=== PATIENT | female | born 1940 | race Hispanic/Latino ===

== ENCOUNTER 2017-05-12 10:11 | Inpatient (IN) | payer MEDICARE, MEDICAID ==
[2017-05-12] VITALS (7 sets, daily range): BP systolic 141–174; BP diastolic 48–91; PULSE 62–75; RESP 14–18; O2SAT 99–100
[~2017-05-12] VITALS: Ht 154.9 cm; Wt 60.8 kg
[~2017-05-12 10:11] MED LIST: AZEL6DRO6 BOTH_EYES; CYA1000I IM; LISI-567 PO; OMEP40CA3 PO
--- NOTE | 2017-05-12 10:27 | ED.REPORT ---
HPI-General Illness Date of Service May 12, 2017 ED Provider: John Heath MD Patient is a 76 year old female with a history of hypertension and gastritis who presents to the ED complaining of dizziness onset more than 8 days ago. Associated symptoms include nausea, decreased appetite and weakness. She also complains of increasing leg cramping. The patient reports that the dizziness is worse when she changes positions or tries to stand and walk. Patient also states that her blood pressure medication (Lisinopril and Hydrochlorothiazide) was recently increased and her leg cramping has been worse since then. Patient was seen at , who referred the patient to the ED. The patient has painful varicose veins, which she has seen a nail making machine setter for. She has prescribed Hydrocodone but reports she has not used any for pain. Nursing Notes Stated Complaint: DIZZINESS,HIGH POTASSIUM,LACK OF APPETITE Chief Complaint: General Complaint Nursing Notes Reviewed: Yes Allergies: Coded Allergies: No Known Allergies (Verified Allergy, Unknown, 10/27/15) Scheduled Ca/D3/Mag/Zinc/Kevon/Bonilla/Mgbor (Caltrate 600+D3+Min Chew Tab) 1 Each Tab.chew 1 EACH PO DAILY Esomeprazole Magnesium (Nexium) 40 Mg Capsule.dr 40 MG PO DAILY Hydrochlorothiazide (Hydrochlorothiazide) 25 Mg Tablet 25 MG PO DAILY Lisinopril (Lisinopril) 20 Mg Tablet 2 TAB PO DAILY Scheduled PRN Hydrocodone-Acetaminophen 5-325 mg (Hydrocodone-Acetaminophen 5-325 mg) 1 Each Tablet 1 TABLET PO Q4H PRN PRN For Pain Miscellaneous Medications Azelastine HCl (Azelastine HCl) 6 Ml Drops 6 ML OP Cholecalciferol (Vitamin D3) (Vitamin D3) 5,000 Unit Tab.rapdis 5,000 UNIT PO General Time Seen by MD: 10:26 Chief Complaint Dizziness Hx Obtained From: Patient Arrived By: Walk-in Sudden in Onset?: Yes Exacerbated by: Standing up Recent Healthcare: Recent doctor visit Similar Sx Previous: No Past Medical History Past Medical History gastritis-takes omeprazole arthritis Reports: Hypertension Past Surgical History bowel resection Reports: Cholecystectomy Smoking History Never Smoker Social History Other Social History: Good social support Ambulatory Status Independent Review of Systems +decreased appetite Full Review of Systems Constitutional: Reports: Weakness - generalized, Denies: Chills, Fever Respiratory: Denies: Non-productive cough, Shortness of breath GI: Reports: Nausea, Denies: Vomiting Musculoskeletal: Reports: Extremity pain Skin: Denies Itching, Denies Rash Neurologic: Reports: Dizziness Complete sys rev & neg: except as marked. Physical Exam Vital Signs Vital Signs Date Time Temp Pulse Resp B/P Pulse Ox O2 Delivery O2 Flow Rate FiO2 05/12/17 13:27 36.9 62 14 141/48 100 Room Air 05/12/17 13:09 62 14 141/48 100 05/12/17 10:15 36.9 71 18 174/67 100 Room Air Initial VS: Reviewed General/Constitutional: Awake, Alert Head / Eyes: Atraumatic, Normocephalic, PERRL, EOMI Respiratory / Chest: Atraumatic, Breath sounds NL, Breath sounds = bilat, No respiratory distress Cardiovascular: Heart rate NL, Regular rhythm, Heart sounds NL Abdomen: Atraumatic, Soft, No guarding, No rebound Tenderness/Guarding/Rebound: Positive: Tender diffuse Skin: Atraumatic, Color NL, No rash, Warm, Dry Neurologic: Oriented X3, Speech NL Interpretation & Diagnostics Lab Results Interpretation Result Diagram: 05/12/17 1025 05/12/17 1115 Test 05/12/17 10:25 05/12/17 11:15 05/12/17 12:03 White Blood Count 6.5th/mm3 (3.8-10.1) Red Blood Count 3.62mil/mm3 (3.90-5.20) Hemoglobin 11.9g/dL (12.0-15.6) Hematocrit 32.5% (35.0-46.0) Mean Corpuscular Volume 89.8fL (81-100) Mean Corpuscular Hemoglobin 32.9pg (27.0-35.0) Mean Corpuscular Hemoglobin Concent 36.6% (32.0-37.0) Red Cell Distribution Width 11.5% (12.3-15.4) Platelet Count 302bil/L (150-400) Neutrophils (%) (Auto) 56.8% (40-74) Lymphocytes (%) (Auto) 31.7% (14-46) Monocytes (%) (Auto) 10.6% (4-12) Eosinophils (%) (Auto) 0.5% (0-5) Basophils (%) (Auto) 0.2% (0-3) Hold [place] Top Tube Received (Received) Sodium Level 120mEq/L (134-144) Potassium Level 4.7mEq/L (3.5-5.2) Chloride Level 88mEq/L (97-108) Carbon Dioxide Level 18mmol/L (18-29) Blood Urea Nitrogen 15mg/dL (8-27) Creatinine 0.93mg/dL (0.57-1.00) Estimat Glomerular Filtration Rate 84mL/min (>59) Glucose Level 123mg/dL (60-99) Calcium Level 9.3mg/dL (8.5-10.1) Total Bilirubin 0.6mg/dL (0.0-1.2) Aspartate Amino Transf (AST/SGOT) 22U/L (0-50) Alanine Aminotransferase (ALT/SGPT) 11U/L (0-32) Alkaline Phosphatase 73U/L (25-165) Total Protein 7.4g/dL (6.4-8.4) Albumin 4.2g/dL (3.4-5.0) Urine Color Yellow (YELLOW) Urine Appearance Clear (CLEAR,HAZY) Urine pH 7.5 (5.0-8.0) Urine Specific [place] 1.013 (1.003-1.035) Urine Protein Negativemg/dL (NEG,TRACE) Urine Glucose (UA) Negativemg/dL (NEGATIVE) Urine Ketones Negativemg/dL (NEGATIVE) Urine Occult Blood Negative (NEGATIVE) Urine Nitrite Negative (NEGATIVE) Urine Bilirubin Negative (NEGATIVE) Urine Urobilinogen Normalmg/dL (NORMAL) Urine Leukocyte Esterase Negative (NEGATIVE) Urine RBC 0-2/hpf (0-2) Urine WBC 0-5/hpf (0-5) Urine Epithelial Cells Few/hpf (NONE-MOD) Urine Crystals None seen (NONE SEEN) Urine Bacteria None/hpf (NONE-FEW) Urine Hyaline Casts None/lpf (NONE) Urine Granular Casts None seen (NONE SEEN) Urine Waxy Casts None seen (NONE SEEN) Urine Red Blood Cell Casts None seen (NONE SEEN) Urine White Blood Cell Casts None seen (NONE SEEN) Urine Mucus None seen (None Seen) Urine Trichomonas None seen (NONE SEEN) Urine Yeast None (NONE SEEN) Urinalysis Comment None Urine Culture Reflexed Not indicated ECG Interpretation Time: 10:52 Interpreted by: ED physician Normal ECG Interpretation: Normal rate (69), Normal sinus rhythm Re-Eval/Medical Decision Time of Eval: 12:29 Re-Evaluation/Progress Note: Discussed results and plan for admit. Patient understands and agrees to plan. All questions were addressed. Consultation : Referral / Consult Name: Raffaele Hope MD Consulted With: Hospitalist Call Returned at: 14:04 Child Development Instructor: Agrees with eval, Agrees with plan, Accepts admit Counseled Regarding: Diagnosis, Lab results, Need for admission Discharge & Departure Primary Impression: Hyponatremia Disposition: ADMITTED TO HOSPITAL Discharge Condition All VS Reviewed: Yes Condition: Stable Referrals: Evelyn Elmore MD (PCP) [place] Attestation Portions of this note were transcribed by Morenita Antunez. I, Dr. Heath personally performed the history, physical exam and medical decision-making; I reviewed and confirmed the accuracy of the information in the transcribed note. Signed by: Clifton Malik, 05/12/17 copies to: Evelyn Elmore MD, Kirk H MD May 12, 2017 10:27 Faith Antunez May 12, 2017 10:41
[2017-05-12 10:39] LABS: BASOPHILS % (AUTO) 0.2 % (0-3); EOSINOPHILS % (AUTO) 0.5 % (0-5); MONOCYTES % (AUTO) 10.6 % (4-12); Mean Corpuscular Hemoglobin 32.9 pg (27.0-35.0); Mean Corpuscular Volume 89.8 fL (81-100); NEUTROPHILS % (AUTO) 56.8 % (40-74); Platelet Count 302 bil/L (150-400)
[2017-05-12 12:52] LABS: APPEARANCE,URINE CLEAR (CLEAR,HAZY); COLOR,URINE YELLOW (YELLOW); OCCULT BLOOD,URINE NEGATIVE (NEGATIVE); PH,URINE 7.5 (5.0-8.0); UROBILINOGEN,URINE NORMAL (NORMAL)
[2017-05-12] MEDS ORDERED: HYDR-4003 PO (13:11)
[2017-05-12] MEDS ORDERED: CHOL500062 PO (13:11)
[2017-05-12] MEDS ORDERED: ESOM40CA41 PO (13:11)
[2017-05-12] MEDS ORDERED: LISI-567 PO (13:11)
[2017-05-12] MEDS ORDERED: CA/D1TAB7 PO (13:11)
[2017-05-12] MEDS ORDERED: HYDR25TA4 PO (13:11)
[2017-05-12] MEDS ORDERED: Polyethylene Glycol (PEG) 17 Gm Powder PO PRN (14:10)
[2017-05-12] MEDS ORDERED: Alum-Mag Hydrox-Simeth 30 mL Suspension PO PRN (14:10)
[2017-05-12] MEDS ORDERED: Ondansetron 2 mg/mL 2 mL Inj IVPUSH PRN (14:10)
[2017-05-12] MEDS ORDERED: [UNRECOGNIZED DRUG - OTHER] PO (14:23)
[2017-05-12] MEDS ORDERED: 0.9% Sodium Chloride 1,000 ML IV ONE (14:30)
[2017-05-12] MEDS ORDERED: 0.9% Sodium Chloride 500 ML IV ONE (14:30)
--- NOTE | 2017-05-12 14:36 | PCM.HPMED ---
Subjective Date of Service May 12, 2017 Primary Provider: Admitting Physician: Raffaele Hope MD Primary Care Physician: Evelyn Elmore MD Attending Physician: Raffaele Hope MD Admit Status: From the Emergency Department, Full Admit, Admit to Blue Team Chief Complaint: progressively worsening dizziness,nausea /2 weeks History of Present Illness: 76 yo lady with PMH HTN,history of ischemic bowel s/p resection,varicose vein presented with progressively worsening dizziness and nausea of 2 weeks . Patient states she went to her PCP 2 weeks ago to get her varicose checked . She has HTN long standing on lisinopril 30mg daily . She was noted to have high BP during that visit and was advised to increase her lisinopril from 30 to 40mg daily and started on HCTZ 25mg daily . Few days following initiation of HCTZ she started to have nausea,poor appetite,poor oral intake and lightheadededness. Symptoms progressively worsened which prompted ED visit . Denies vomiting.denies leg or abdominal swelling . denies fever ED course: BP 174/67, exam otherwise unremarkable. Hemoglobin 11.9. Sodium 120 , chloride 88, bicarbonate 18, creatinine 0.93 Review of Systems: Comprehensive review of systems performed, pertinent positives and negatives included in history of present illness Allergies Coded Allergies: No Known Allergies (Verified Allergy, Unknown, 10/27/15) Home Medications Hydrochlorothiazide (Hydrochlorothiazide) 25 Mg Tablet 25 MG PO DAILY , started 2 weeks ago Lisinopril (Lisinopril) 20 Mg Tablet 2 TAB PO DAILY , dose increased from 1 and half to 2 tablets 2 weeks ago Ca/D3/Mag/Zinc/Kevon/Bonilla/Mgbor (Caltrate 600+D3+Min Chew Tab) 1 Each Tab.chew 1 EACH PO DAILY Esomeprazole Magnesium (Nexium) 40 Mg Capsule. 40 MG PO DAILY PMH History of ischemic bowel Barretts esophagus Varicose vein Hypertension Surgical History Resection of ischemic small bowel Cholecystectomy Family History Father in his 80s due to gastric ulcer Mom in her 80s due to chronic cough Social History Hx Alcohol Use: No Hx Substance Use: No Hx Tobacco Use: No Smoking Status: Never Smoker Exam Vital Signs Vital Sign - Last Date Time Temp Pulse Resp B/P Pulse Ox O2 Delivery O2 Flow Rate FiO2 05/12/17 13:27 36.9 62 14 141/48 100 Room Air Exam Gen. patient is lying comfortably in hospital bed HEENT: Head is normocephalic atraumatic, dry tongue Lungs clear to auscultation bilaterally Heart regular rate and rhythm without murmurs gallops or rubs Abdomen soft nontender without hepatosplenomegaly Extremities pulses are present dorsalis pedis posterior tibialis and radial. Varicose vein on lower extremity Psych alert and oriented to person place and time Neuro cranial nerves II through XII are grossly intact Lymph: There is no lymphadenopathy appreciated in the cervical supra infraclavicular regions : no barnhart Lab and Diagnostics Result Diagram: 05/12/17 1025 05/12/17 1115 Assessment & Plan 76 yo lady with PMH HTN,history of ischemic bowel s/p resection,varicose vein presented with progressively worsening dizziness and nausea of 2 weeks . # Symptomatic hyponatremia,acute,poa -Due to hydrochlorothiazide -Discontinued hydrochlorothiazide -normal saline 1 L bolus and 100ml/h -goal Na correction 6-8meq/24 -Zofran for nausea #Dizziness due to above # Hypertension, chronic -Discontinued hydrochlorothiazide, hold lisinopril.will use amlodipine if BP high # varicose vein ,undergoing outpt workup # ppx scd Patient admitted under inpatient status with expected length of stay > 2 midnights for severity of present symptoms, complexities of treatment plan and risk for adverse events full code per patient Resuscitation Status: CPR: Attempt Resuscitation copies to: Evelyn Elmore MD, Melaku MD May 12, 2017 14:36
[2017-05-12] MEDS: 0.9% Sodium Chloride 1,000 ML IV SCH (14:57)
--- NOTE | 2017-05-12 15:15 | NUR ---
ADMIT TO [facility] Report received from Jeffy Guzman/ROMULO in ED. Pt arrived to floor around 15:15 strong and steady on feet. Pt is Guatemalan speaking only, grand-daughter in room to assist with needs. Pt oriented to unit, room, and call light. Pt reports feeling dizzy and having nausea. Denies pain and SOB. Admission and Med Rec completed by admit nurse. Tele: SR 63, RA, IVF started per orders. All questions answered, Board updated, Continuing with care.
[2017-05-12 19:40] LABS: Magnesium 1.6 mg/dL (1.6-2.6)
[2017-05-13] VITALS (10 sets, daily range): BP systolic 108–144; BP diastolic 55–70; PULSE 58–73; RESP 16–18; O2SAT 98–99
[2017-05-13] MEDS: 0.9% Sodium Chloride 1,000 ML IV SCH (04:02)
[2017-05-13 06:29] LABS: BASOPHILS % (AUTO) 0.6 % (0-3); EOSINOPHILS % (AUTO) 1.8 % (0-5); MONOCYTES % (AUTO) 14.7 % (4-12); Mean Corpuscular Volume 92.7 fL (81-100); NEUTROPHILS % (AUTO) 50.7 % (40-74); Platelet Count 245 bil/L (150-400)
[2017-05-13 08:30] LABS: Magnesium 1.8 mg/dL (1.6-2.6)
--- NOTE | 2017-05-13 12:45 | PCM.PNMED ---
Subjective Date of Service May 13, 2017 Subjective nausea much improved ,ate breakfast fully today .dizziness improved . Na improved .patient has chonic on and off diarrhea with eating Exam Vital Signs Vital Sign - Last Date Time Temp Pulse Resp B/P Pulse Ox O2 Delivery O2 Flow Rate FiO2 05/13/17 09:45 36.5 66 18 119/64 99 Room Air Intake and Output 05/12/17 05/12/17 05/13/17 Cumulative From/Thru 15:00 23:00 07:00 05/12/17 10:15 - 05/13/17 04:55 Intake Total 1936 ml 832 ml 2768 ml Output Total 1350 ml 1350 ml Balance 586 ml 832 ml 1418 ml Intake Oral 800 ml 800 ml IV Total 1136 ml 832 ml 1968 ml Output Urine Total 1350 ml 1350 ml # Bowel Movements 0 0 Exam Gen. patient is lying comfortably in hospital bed HEENT: Head is normocephalic atraumatic, dry tongue Lungs clear to auscultation bilaterally Heart regular rate and rhythm without murmurs gallops or rubs Abdomen soft nontender without hepatosplenomegaly Extremities pulses are present dorsalis pedis posterior tibialis and radial. Varicose vein on lower extremity Psych alert and oriented to person place and time Neuro cranial nerves II through XII are grossly intact Lymph: There is no lymphadenopathy appreciated in the cervical supra infraclavicular regions : no barnhart IVs and Medications Medications Reviewed: Medications were reviewed in detail Lab and Diagnostics Result Diagram: 05/13/17 0610 05/13/17 0610 Assessment & Plan 76 yo lady with PMH HTN,history of ischemic bowel s/p resection,varicose vein presented with progressively worsening dizziness and nausea of 2 weeks . # Symptomatic hyponatremia,acute,poa -Due to hydrochlorothiazide -Discontinued hydrochlorothiazide -normal saline 1 L bolus and 100ml/h -goal Na correction 6-8meq/24.overcorrected to 130 from 120 in 24h.no neuro complaints or issue.discontinued IVF .low bicarb due to NS noted,follow up in am -Zofran for nausea #Dizziness due to above # Hypertension, chronic -Discontinued hydrochlorothiazide, hold lisinopril.will use amlodipine if BP high.BP low now and no need for any med for now # chronic on and off diarrhea -patient has on and off diarrhea with eating . o sign or symptom of infection -imodium prn.outpt follow up # varicose vein ,undergoing outpt workup # ppx scd Patient admitted under inpatient status with expected length of stay > 2 midnights for severity of present symptoms, complexities of treatment plan and risk for adverse events full code per patient VTE Mechanical Devices: Intermittant Pneumatic CD Resuscitation Status: CPR: Attempt Resuscitation Raffaele Hope MD May 13, 2017 12:45
--- NOTE | 2017-05-13 14:15 | NUR ---
Shift note Pt stated that she felt much better and almost normal. Pt ate 100% of her meals, c/o nausea was very mild but did not need Zofran. Pt had diarrhea X2 after eating. MD notified. Administered Imodium. Pt has diarrhea normally after meals. Pt denied lightheadedness or dizziness. Continue to monitor. Family at bedside to help with translation.
--- NOTE | 2017-05-13 16:36 | NUR ---
Social Work: Initial Assessment Data: See initial assessment. Patient is a 76 year old female who was admitted on 05/12/17 for hyponatremia per H&P. Patient's insurance is Medicare and [facility]. Patient's PCP is Dr. Evelyn Elmore. SW met with patient to discuss discharge planning. Patient is Maltese speaking only however, family was at bedside. Patient's granddaughter Elvie was able to complete assessment. Patient resides in a 2 story home in [place] with her son. Patient considers her main support system to be her family. Patient denies having a DPOA or AD and has declined resources at this time. Patient doesn't drive but relies on her family for transportation assistance. Patient denies having a hx of home health services or SNF. Patient denies having [facility] insurance or [facility] benefits. Upon discharge, transportation will be provided by patient's daughter. SW provided patient with a discharge planning checklist booklet and encouraged to call with any concerns/questions. Phone number provided. SW will continue to follow. Assessment: Patient will discharge home with son. Plan: Patient will discharge home with son when medically ready. Transportation will be provided by family. SW will continue to follow. RADHA Mooney Addendum: 05/13/17 at 1646 by CHEN YANEZ Amended: Links added.
[2017-05-14 00:07] VITALS: BP 121/49; PULSE 66; RESP 18; O2SAT 97
[2017-05-14 06:01] VITALS: BP 124/49; PULSE 71; RESP 17; O2SAT 99
[2017-05-14 06:27] LABS: MONOCYTES % (AUTO) 10.4 % (4-12); Mean Corpuscular Hemoglobin 32.6 pg (27.0-35.0); Mean Corpuscular Volume 93.4 fL (81-100); NEUTROPHILS % (AUTO) 52.5 % (40-74); Platelet Count 248 bil/L (150-400)
--- NOTE | 2017-05-14 08:46 | NUR ---
Assistant Softball Coach In person translation provided for pt. Pt denies having questions/concerns. Denies nausea. States is ready to go home. Has a f/u with PCP on 07/02-looking into seeing someone sooner taylor if SBP >150, per orders.
[2017-05-14 09:29] VITALS: BP 151/70; PULSE 77; RESP 18; O2SAT 99
[2017-05-14] MEDS ORDERED: LOPE2CAP PO (09:30)
--- NOTE | 2017-05-14 09:30 | PCM.DIMED ---
Discharge Instructions Date of Service May 14, 2017 Dates of Hospitalization May 12, 2017 at 13:37 Discharge Diagnosis Discharge Diagnosis # Symptomatic hyponatremia,acute,poa -Due to hydrochlorothiazide #Dizziness due to above # Hypertension, chronic,now normal blood pressure # chronic on and off diarrhea # varicose vein , Diet Discharge Diet: Low fat, Low Sodium Activity Discharge Activity: Limited until seen by PCP Call your provider Call your provider for: Fever or Chills, Shortness of breath, Bleeding, Chest pain, Vomitting, Excessive diarrhea, Weakness (unilateral) Patient Instructions Patient Instructions You were hospitalized due to symptomatic hyponatremia due to hydrochlorothiazide. Please do not take hydrochlorothiazide in the future, it may cause severe Hyponatremia.Your blood pressure is normal in the hospital. I have discontinued both hydrochlorothiazide and lisinopril. Please check blood pressure at home daily.You may be restarted on lisinopril if blood pressure is high.I have prescribed loperamide for chronic on and off diarrhea. Please follow-up with PCP in 2 weeks. Follow-up Provider: Evelyn Elmore MD Follow-up with PCP in: 2 weeks Raffaele Hope MD May 14, 2017 09:29
--- NOTE | 2017-05-14 11:00 | NUR ---
Social Work-discharge: Data:EM Reviewed. Pt is on day 2 of hospitalization for hyponatremia per H&P. Pt is medically stable for discharge. Pt reside at home with her family and has been up independent in her room. No discharge needs identified. All updated and agreeable to plan. Assessment:pt who is independent at baseline. Plan:Pt to discharge home today via POV. No discharge needs identified. All updated and agreeable to plan. RADHA Maxwell
--- NOTE | 2017-05-14 11:06 | NUR ---
Discharge Pt d/cd home with granddaughter Marta at 1105 via wc by RN. Pt denied pain/nausea. IV d/cd, VSS, all personal belongings left with pt. Discharge teaching provided via translation from Marta, per pts request. Emphasis made on BP monitoring at home and restarting Lisinopril if SBP >150, as discussed this AM by physician. Pt stated another granddaughter is a nurse at cancer care and will come over to help with BP monitoring as need.
--- NOTE | 2017-05-14 14:52 | PCM.DC.MED ---
Discharge Summary Date of Service May 14, 2017 Dates of Hospitalization Date of Hospital Admission May 12, 2017 at 13:37 Date of Discharge: May 14, 2017 Providers: Admitting Physician: Raffaele Hope MD Primary Care Physician: Evelyn Elmore MD Attending Physician: Raffaele Hope MD Diagnosis at Time of Discharge Diagnosis at Time of Discharge # Symptomatic hyponatremia,acute,poa -Due to hydrochlorothiazide #Dizziness due to above # Hypertension, chronic,now normal blood pressure # chronic on and off diarrhea # varicose vein , Brief History per HPI 76 yo lady with PMH HTN,history of ischemic bowel s/p resection,varicose vein presented with progressively worsening dizziness and nausea of 2 weeks . Patient states she went to her PCP 2 weeks ago to get her varicose checked . She has HTN long standing on lisinopril 30mg daily . She was noted to have high BP during that visit and was advised to increase her lisinopril from 30 to 40mg daily and started on HCTZ 25mg daily . Few days following initiation of HCTZ she started to have nausea,poor appetite,poor oral intake and lightheadededness. Symptoms progressively worsened which prompted ED visit . Denies vomiting.denies leg or abdominal swelling . denies fever ED course: BP 174/67, exam otherwise unremarkable. Hemoglobin 11.9. Sodium 120 , chloride 88, bicarbonate 18, creatinine 0.93 Hospital Course 76 yo lady with PMH HTN,history of ischemic bowel s/p resection,varicose vein presented with progressively worsening dizziness and nausea of 2 weeks . # Symptomatic hyponatremia,acute,poa -Due to hydrochlorothiazide -Discontinued hydrochlorothiazide -treated with normal saline 1 L bolus and 100ml/h -goal Na correction 6-8meq/24.overcorrected to 130 from 120 in 24h.133 today.no neuro complaints or issue.discontinued IVF . -Zofran for nausea #Dizziness due to above # Hypertension, chronic -Discontinued hydrochlorothiazide, hold lisinopril..BP low now and no need for any med for now .advised to check it at home # chronic on and off diarrhea -patient has on and off diarrhea with eating . no sign or symptom of infection -imodium prn.prescribed # varicose vein ,undergoing outpt workup # ppx scd Patient admitted under inpatient status with expected length of stay > 2 midnights for severity of present symptoms, complexities of treatment plan and risk for adverse events full code per patient discharged home condition stable Exam Vital Signs (Last) Date Time Temp Pulse Resp B/P Pulse Ox O2 Delivery O2 Flow Rate FiO2 05/14/17 09:29 36.6 77 18 151/70 99 Room Air Exam Gen. patient is lying comfortably in hospital bed HEENT: Head is normocephalic atraumatic, dry tongue Lungs clear to auscultation bilaterally Heart regular rate and rhythm without murmurs gallops or rubs Abdomen soft nontender without hepatosplenomegaly Extremities pulses are present dorsalis pedis posterior tibialis and radial. Varicose vein on lower extremity Psych alert and oriented to person place and time Neuro cranial nerves II through XII are grossly intact Lymph: There is no lymphadenopathy appreciated in the cervical supra infraclavicular regions : no barnhart Test 05/12/17 10:25 05/12/17 12:03 05/13/17 06:10 05/14/17 06:05 Hold [place] Top Tube Received (Received) Urine Color Yellow (YELLOW) Urine Appearance Clear (CLEAR,HAZY) Urine pH 7.5 (5.0-8.0) Urine Specific [place] 1.013 (1.003-1.035) Urine Protein Negativemg/dL (NEG,TRACE) Urine Glucose (UA) Negativemg/dL (NEGATIVE) Urine Ketones Negativemg/dL (NEGATIVE) Urine Occult Blood Negative (NEGATIVE) Urine Nitrite Negative (NEGATIVE) Urine Bilirubin Negative (NEGATIVE) Urine Urobilinogen Normalmg/dL (NORMAL) Urine Leukocyte Esterase Negative (NEGATIVE) Urine RBC 0-2/hpf (0-2) Urine WBC 0-5/hpf (0-5) Urine Epithelial Cells Few/hpf (NONE-MOD) Urine Crystals None seen (NONE SEEN) Urine Bacteria None/hpf (NONE-FEW) Urine Hyaline Casts None/lpf (NONE) Urine Granular Casts None seen (NONE SEEN) Urine Waxy Casts None seen (NONE SEEN) Urine Red Blood Cell Casts None seen (NONE SEEN) Urine White Blood Cell Casts None seen (NONE SEEN) Urine Mucus None seen (None Seen) Urine Trichomonas None seen (NONE SEEN) Urine Yeast None (NONE SEEN) Urinalysis Comment None Urine Culture Reflexed Not indicated Magnesium Level 1.8mg/dL (1.6-2.6) Total Bilirubin 0.5mg/dL (0.0-1.2) Aspartate Amino Transf (AST/SGOT) 19U/L (0-50) Alanine Aminotransferase (ALT/SGPT) 10U/L (0-32) Alkaline Phosphatase 93U/L (25-165) Total Protein 6.0g/dL (6.4-8.4) Albumin 3.6g/dL (3.4-5.0) Triglycerides Level 103mg/dL (0-149) Cholesterol Level 182mg/dL (100-199) LDL Cholesterol, Calculated 107.400mg/dL (0-99) VLDL Cholesterol 20.600mg/dL HDL Cholesterol 54mg/dL (>39) Cholesterol/HDL Ratio 3.37 (0.0-4.4) Thyroid Stimulating Hormone (TSH) 1.010uIU/mL (0.450-4.500) Free Thyroxine 0.96ng/dL (0.82-1.77) White Blood Count 6.9th/mm3 (3.8-10.1) Red Blood Count 3.04mil/mm3 (3.90-5.20) Hemoglobin 9.9g/dL (12.0-15.6) Hematocrit 28.4% (35.0-46.0) Mean Corpuscular Volume 93.4fL (81-100) Mean Corpuscular Hemoglobin 32.6pg (27.0-35.0) Mean Corpuscular Hemoglobin Concent 34.9% (32.0-37.0) Red Cell Distribution Width 12.1% (12.3-15.4) Platelet Count 248bil/L (150-400) Neutrophils (%) (Auto) 52.5% (40-74) Lymphocytes (%) (Auto) 33.0% (14-46) Monocytes (%) (Auto) 10.4% (4-12) Eosinophils (%) (Auto) 3.0% (0-5) Basophils (%) (Auto) 1.0% (0-3) Sodium Level 133mEq/L (134-144) Potassium Level 4.5mEq/L (3.5-5.2) Chloride Level 103mEq/L (97-108) Carbon Dioxide Level 15mmol/L (18-29) Blood Urea Nitrogen 16mg/dL (8-27) Creatinine 0.96mg/dL (0.57-1.00) Estimat Glomerular Filtration Rate 81mL/min (>59) Glucose Level 98mg/dL (60-99) Calcium Level 8.4mg/dL (8.5-10.1) Discharge Medications Discharge Medications Ca/D3/Mag/Zinc/Kevon/Bonilla/Mgbor (Caltrate 600+D3+Min Chew Tab) 1 Each Tab.chew 1 EACH PO DAILY (Reported) Cholecalciferol (Vitamin D3) (Vitamin D3) 5,000 Unit Tab.rapdis 5,000 UNIT PO QAM (Reported) Esomeprazole Magnesium (Nexium) 40 Mg Capsule.dr 40 MG PO QAM (Reported) As needed ([Bromezapam]) 0.75-1.5 MG PO Q8H PRN PRN For Insomnia (Reported) MEDICATION OBTAINED FROM [facility] Azelastine HCl (Azelastine HCl) 6 Ml Drops 2 DROP BOTH_EYES Q12H PRN PRN ALLERGIES (Reported) Hydrocodone-Acetaminophen 5-325 mg (Hydrocodone-Acetaminophen 5-325 mg) 1 Each Tablet 1 TABLET PO Q4H PRN PRN For Pain (Reported) Loperamide (Loperamide) 2 Mg Capsule 2 MG PO Q6H PRN PRN For Diarrhea or Loose Stool Prescribed by: RAFFAELE HOPE MD Followup Plan Disposition: home Discharge Diet: Low fat, Low Sodium Discharge Activity: Limited until seen by PCP Patient Instructions You were hospitalized due to symptomatic hyponatremia due to hydrochlorothiazide. Please do not take hydrochlorothiazide in the future, it may cause severe Hyponatremia.Your blood pressure is normal in the hospital. I have discontinued both hydrochlorothiazide and lisinopril. Please check blood pressure at home daily.You may be restarted on lisinopril if blood pressure is high.I have prescribed loperamide for chronic on and off diarrhea. Please follow-up with PCP in 2 weeks. Follow-up Provider: Evelyn Elmore MD Follow-up with PCP in: 2 weeks Time spent 35 minutes coordinating discharge and answering questions copies to: Evelyn Elmore MD, Melaku MD May 14, 2017 14:52
== END 2017-05-14 10:56 | disposition home or self-care (01) | DRG 641 ==
LOC: SED 10:11 → MPC 13:37
PROVIDERS: ADMIT Internal Medicine; ATTEND Internal Medicine
DX: E87.1 Hypo-osmolality and hyponatremia (principal); I10 Essential (primary) hypertension; R19.7 Diarrhea, unspecified; T50.2X5A Adverse effect of carbonic-anhydrase inhibitors, benzothiadiazides and other diuretics, initial encounter